=== PATIENT | male | born 1945 | race Two or more races ===

== ENCOUNTER 2020-04-20 06:08 | Emergency (ER) | payer MEDICARE ==
[~2020-04-20] VITALS: Ht 165.1 cm; Wt 66.2 kg
--- NOTE | 2020-04-20 06:34 | NUR ---
pt pashto speaking, states he has had a fever for 8 days. also states recently with urninary symptoms, dribbling and needing to urinate frequently, feeling like he cannot empty bladder all the way.
--- NOTE | 2020-04-20 06:56 | NUR ---
bladder scan revealed 19-30ml post void residual volume
--- NOTE | 2020-04-20 06:57 | NUR ---
report to JOELLE White
[2020-04-20 06:59] LABS: MEAN CORPUSCULAR HEMOGLOBIN 29.8 pg (27.5-34.5); MEAN CORPUSCULAR VOLUME 87.5 fL (81-97); MEAN PLATELET VOLUME 7.6 fL (7.4-10.4); PLATELET COUNT 292 x10^3/uL (130-400); RED BLOOD COUNT 5.06 x10^6/uL (4.38-5.82); RED CELL DISTRIBUTION WIDTH 13.3 % (9.4-14.8)
[2020-04-20 07:07] LABS: ALBUMIN 3.5 g/dL (3.4-5.0); ANION GAP 11 mmol/L (5-15); CALCIUM 9.3 mg/dL (8.5-10.1); CHLORIDE 106 mmol/L (98-107); CREATININE 1.33 mg/dL (0.7-1.3)
[2020-04-20] MEDS ORDERED: ACETAMINOPHEN 500 MG TABLET ONE (07:13)
[2020-04-20 07:25] LABS: MICROSCOPIC INDICATED
[2020-04-20] MEDS ORDERED: ACETAMINOPHEN 500 MG TABLET PO ONE (07:30)
[2020-04-20 07:32] LABS: BASOPHILS # (AUTO) 0.08 x10^3/uL (0-0.1); BASOPHILS % (AUTO) 1 % (0-1); EOSINOPHILS # (AUTO) 0.02 x10^3/uL (0-0.4); EOSINOPHILS % (AUTO) 0 % (1-7); LYMPHOCYTES # (AUTO) 1.31 x10^3/uL (1-3.4); LYMPHOCYTES % (AUTO) 8 % (22-44); MD SCAN; MONOCYTES % (AUTO) 8 % (2-9); NEUTROPHILS # (AUTO) 14.46 x10^3/uL (1.8-6.8); NEUTROPHILS % (AUTO) 84 % (42-75)
[2020-04-20] MEDS ORDERED: CEFTRIAXONE 1,000 MG IM ONE (08:00)
[2020-04-20] MEDS ORDERED: CEFTRIAXONE 1,000 MG ONE (08:10)
--- NOTE | 2020-04-20 08:12 | NUR ---
DISCHARGE INSTRUCTIONS REVIEWED
[2020-04-20 08:13] VITALS: BP 106/73
== END 2020-04-20 08:42 | disposition home or self-care (01) ==
LOC: ED 07:24
DX: N39.0 Urinary tract infection, site not specified (principal); E86.0 Dehydration; R50.9 Fever, unspecified; Z20.828 Contact with and (suspected) exposure to other viral communicable diseases; R19.7 Diarrhea, unspecified
CPT/HCPCS: 36415; 71045; 80048; 81001; 82040; 85025; 87086; 96372; 99284; J0696; U0001; 87077; 87186